=== PATIENT | female | born 1960 | race Caucasian/White ===

== ENCOUNTER → 2020-07-17 11:41 | Outpatient (CLI) | payer BC, SELFPAY ==
--- NOTE | ~2020-07-17 | MM_ITS ---
EXAMINATION: MM screening brittney BI w sulma HISTORY: Screening mammogram TECHNIQUE: Craniocaudal and mediolateral oblique 3-D tomosynthesis images were obtained and synthetic 2-D images were generated. CAD analysis was submitted and interpreted. COMPARISON: 04/07/2017, 01/15/2015, 01/18/2012 bilateral digital screening mammogram examinations BREAST PARENCHYMAL COMPOSITION: The breasts are heterogeneously dense, which may obscure small masses . FINDINGS: There is no evidence of suspicious mass, calcification, or architectural distortion to sugg est malignancy in either breast. There has been no suspicious interval change. IMPRESSION: 1. No mammographic evidence of malignancy. 2. Recommend routine screening mammography in one year. BI-RADS Category 1: Negative Reviewed, dictated and finalized at location A.
== END ==
PROVIDERS: PCP Family Medicine; Visit Provider Physician Assistant
DX: Z12.31 Encounter for screening mammogram for malignant neoplasm of breast (principal)
CPT/HCPCS: 77063; 77067

== ENCOUNTER → 2022-10-19 12:17 | Outpatient (CLI) | payer OTHER, SELFPAY ==
--- NOTE | ~2022-10-19 | MM_ITS ---
EXAMINATION: MM screening brittney BI w sulma HISTORY: Screening mammogram TECHNIQUE: Craniocaudal and mediolateral oblique 3-D tomosynthesis images were obtained and synthetic 2-D images were generated. CAD analysis was submitted and interpreted. COMPARISON: 07/17/2020, 04/07/2017, 01/15/2015 bilateral screening mammogram examinations BREAST PARENCHYMAL COMPOSITION: The breasts are heterogeneously dense, which may obscure small masses . FINDINGS: There is no evidence of suspicious mass, calcification, or architectural distortion to sugg est malignancy in either breast. There has been no suspicious interval change. IMPRESSION: 1. No mammographic evidence of malignancy. 2. Recommend routine screening mammography in one year. BI-RADS Category 1: Negative Reviewed, dictated and finalized at location A.
== END ==
PROVIDERS: PCP Obstetrics & Gynecology Gynecologic Oncology; Visit Provider Obstetrics & Gynecology Gynecologic Oncology
DX: Z12.31 Encounter for screening mammogram for malignant neoplasm of breast (principal)
CPT/HCPCS: 77063; 77067

== ENCOUNTER → 2023-03-01 13:02 | Outpatient (CLI) | payer OTHER, SELFPAY ==
--- NOTE | ~2023-03-01 | XR_ITS ---
EXAM: XR hand RT min 3V DATE: 03/01/2023 13:18 HISTORY: M25.541 - Pain in joints of right hand . COMPARISON: None available. FINDINGS: Normal mineralization. No fracture or dislocation. No lytic or blastic lesion. Joint space s are maintained. No erosion or periosteal change. Soft tissues within normal limits. IMPRESSION: Unremarkable right hand radiograph findings. Reviewed, dictated and finalized at location K. E TESTER
== END ==
PROVIDERS: PCP Physician Assistant; Visit Provider Physician Assistant
DX: M25.541 Pain in joints of right hand (principal)
CPT/HCPCS: 73130

== ENCOUNTER 2024-08-16 10:57 | Outpatient (CLI) | payer OTHER, SELFPAY ==
--- NOTE | ~2024-08-16 | XR_ITS ---
XR lumbar spine 2-3V 08/16/2024 11:19 Indication: Sacrococcygeal disorder Procedure: 3 views lumbar spine Comparison: No prior studies for comparison. Findings: Vertebral body heights are maintained. There is disc narrowing at L3-4, L4-5 and L5-S1. Mil d dextrocurvature of the lumbar spine. There is right nephrolithiasis. Sacral foramen are symmetric. No evidence for spondylolisthesis or acute fracture. There is facet hypertrophy at L4-5 and L5-S1. No evidence for spondylolisthesis. Bowel gas pattern nonobstructive. Impression: 1: Moderate lumbar spondylosis with dextroscoliosis. 2: Right nephrolithiasis. Reviewed, dictated and finalized at location A. Impression: 1: Moderate lumbar spondylosis with dextroscoliosis. 2: Right nephrolithiasis.
--- NOTE | ~2024-08-16 | XR_ITS ---
XR hip BI 2V w AP pelvis 08/16/2024 11:19 Indication: Sacrococcygeal disorders Procedure: AP pelvis and 2 views each hip Comparison: No prior studies for comparison. Findings: No fracture, subluxation or dislocation. Sacral foramen are symmetric. No soft tissue abnor mality. No foreign bodies. Impression: 1: No significant bone or joint abnormality. Reviewed, dictated and finalized at location A. Impression: 1: No significant bone or joint abnormality.
== END 2024-08-16 10:58 | disposition home or self-care (01) ==
LOC: MICIMG 10:59
PROVIDERS: PCP Nurse Practitioner Family; Visit Provider Nurse Practitioner Family
DX: M53.3 Sacrococcygeal disorders, not elsewhere classified (principal); M43.06 Spondylolysis, lumbar region; N20.0 Calculus of kidney
CPT/HCPCS: 72100; 73521